=== PATIENT | female | born 1985 | race Caucasian/White ===

== ENCOUNTER 2020-11-05 09:42 | Day surgery (SDC) | payer BC ==
[~2020-11-05 09:42] MED LIST: Acetaminophen 1,000 MG in Premix Bag 1 BAG IV PRN; Glycopyrrolate 0.2 MG/ML SDV ONE; Ketorolac 30 MG/ML SDV ONE; Lactated Ringers 1,000 ML IV SCH; Lidocaine 2% 5 ML SDV ONE; Midazolam 1 MG/ML 2 ML SDV ONE; Ondansetron 4 MG/2 ML SDV ONE; Propofol 200 MG/20 ML SDV ONE; fentaNYL 100 MCG/2 ML SDV IVPUSH PRN; fentaNYL 100 MCG/2 ML SDV ONE
--- NOTE | 2020-11-05 10:04 | PCM.PREANE ---
Preanesthetic Assessment - Anesthesia/Transfusion/Family Hx Anesthesia History: Prior Anesthesia Without Reaction Family History of Anesthesia Reaction: No Transfusion History: No Prior Transfusion(s) - Review of Systems General: No Symptoms Pulmonary: No Symptoms Cardiovascular: No Symptoms Gastrointestinal: No Symptoms Neurological: No Symptoms Other: Reports: None - Physical Assessment NPO Status Date: 11/05/20 NPO Status Time: 00:01 Height: 5 ft 6 in Weight: 167 lb ASA Class: 2 Mental Status: Alert & Oriented x3 Airway Class: Mallampati = 2 Dentition: Reports: Normal Dentition ROM/Head Extension: Full Lungs: Clear to Auscultation, Normal Respiratory Effort Cardiovascular: Regular Rate, Regular Rhythm - Allergies Allergies/Adverse Reactions: Allergies Allergy/AdvReac Type Severity Reaction Status Date / Time gluten Allergy Diarrhea Verified 11/01/20 15:16 morphine Allergy Anaphylactic Verified 11/01/20 15:16 Shock - Anesthesia Plan Pre-Op Medication Ordered: None - Acknowledgements Anesthesia Type Planned: General Anesthesia Pt an Appropriate Candidate for the Planned Anesthesia: Yes Alternatives and Risks of Anesthesia Discussed w Pt/Guardian: Yes Pt/Guardian Understands and Agrees with Anesthesia Plan: Yes Additional Comments: npo after mn IBS no cv problems tob none etoh occ bmi 27 par no questions PreAnesthesia Questionnaire HEENT History: Reports: Other (See Below) Other HEENT History: wears glasses/contacts Cardiovascular History: Reports: None Respiratory History: Reports: None Gastrointestinal History: Reports: Irritable Bowel Syndrome Genitourinary History: Reports: None [employer]ANCE [employer]AFF ST[employer]ER History: Reports: None Musculoskeletal History: Reports: Fracture Other Musculoskeletal History: hx of fx jaw Neurological History: Reports: Concussion, Other (See Below) Other Neuro History: hx of motion sickness Psychiatric History: Reports: None Endocrine/Metabolic History: Reports: None Hematologic History: Reports: None Immunologic History: Reports: None Oncologic (Cancer) History: Reports: None Dermatologic History: Reports: None - Past Surgical History Head Surgeries/Procedures: Reports: None HEENT Surgical History: Reports: Oral Surgery Other HEENT Surgeries/Procedures: ORIF fx jaw, wisdom teeth removed, 2 dental implants Cardiovascular Surgical History: Reports: None Respiratory Surgical History: Reports: None GI Surgical History: Reports: None Female Surgical History: Reports: Other (See Below) Other Female Surgeries/Procedures: previous Hysteroscopy Endocrine Surgical History: Reports: None Neurological Surgical History: Reports: None Musculoskeletal Surgical History: Reports: ORIF Other Musculoskeletal Surgeries/Procedures:: ORIF fx jaw Oncologic Surgical History: Reports: None - SUBSTANCE USE Tobacco Use Status *Q: Never Tobacco User Recreational Drug Use History: No - HOME MEDS Home Medications: Home Meds Desogestrel/Ethinyl Estradiol [Apri] 1 tab PO DAILY 11/01/20 [History] Docosahexaenoic Acid [ Dha] 1 cap PO DAILY 11/01/20 [History] L.acidoph,Paracasei, B.lactis [Probiotic] 1 cap PO DAILY 11/01/20 [History] Pnv No.95/Ferrous Fum/Folic AC [ Vitamin Tablet] 1 tab PO DAILY 11/01/20 [History] Vitamins A and D [Vitamin A and D] 1 cap PO DAILY 11/01/20 [History] - CURRENT (IN HOUSE) MEDS Current Meds: Current Medications Fentanyl (Fentanyl 100 Mcg/2 Ml Sdv) 50 mcg IVPUSH Q5M PRN PRN Reason: Pain Lactated Ringer's (Ringers, Lactated) 1,000 mls @ 125 mls/hr IV ASDIRECTED JORDI Acetaminophen 1,000 mg/ Premix 100 mls @ 400 mls/hr IV Q6H PRN PRN Reason: Pain Discontinued Medications Fentanyl (Fentanyl 100 Mcg/2 Ml Sdv) Confirm Administered Dose 100 mcg .ROUTE .STK-MED ONE Stop: 11/05/20 07:10 Glycopyrrolate (Glycopyrrolate 0.2 Mg/Ml Sdv) Confirm Administered Dose 0.2 mg .ROUTE .STK-MED ONE Stop: 11/05/20 07:11 Ketorolac Tromethamine (Ketorolac 30 Mg/Ml Sdv) Confirm Administered Dose 30 mg .ROUTE .STK-MED ONE Stop: 11/05/20 07:11 Lidocaine (Lidocaine 2% 5 Ml Sdv) Confirm Administered Dose 5 ml .ROUTE .STK-MED ONE Stop: 11/05/20 07:11 Midazolam HCl (Midazolam 1 Mg/Ml 2 Ml Sdv) Confirm Administered Dose 2 mg .ROUTE .STK-MED ONE Stop: 11/05/20 07:10 Ondansetron HCl (Ondansetron 4 Mg/2 Ml Sdv) Confirm Administered Dose 4 mg .ROUTE .STK-MED ONE Stop: 11/05/20 07:11 Propofol (Propofol 200 Mg/20 Ml Sdv) Confirm Administered Dose 200 mg .ROUTE .[facility] ONE Stop: 11/05/20 07:10
--- NOTE | 2020-11-05 11:13 | PCM.OPNOTE ---
- General Post-Op/Procedure Note Date of Surgery/Procedure: 11/05/20 Operative Procedure(s): Hysteroscopy dilation and curettage with polypectomy Findings: Anteverted uterus sounding to 8cm. Two endometrial polyps located over the posterior endometrium. Pre Op Diagnosis: 1. Endometrial polyp. 2. Infertility Post-Op Diagnosis: 1. Endometrial polyp. 2. Infertility Anesthesia Technique: General LMA Primary Surgeon: Komal Bauman Anesthesia Provider: Mayo Aiken Pathology: Endometrial polyps, endometrial curettings Fluid Replacement, Intraop: 600 (crystalloid) Output, Urine Amount: 50 (straight cath prior to procedure) EBL in mLs: 10 Complications: None known Condition: Good Free Text/Narrative:: Intraoperative fluid deficit: 200cc Dictation #[id number]
--- NOTE | 2020-11-05 11:32 | PCM.POSTAN ---
POST ANESTHESIA ASSESSMENT - MENTAL STATUS Mental Status: Alert (no anesthetic problems), Oriented - VITAL SIGNS Vital Signs: Last Vital Signs Temp 98.6 F 11/05/20 10:59 Pulse 68 11/05/20 11:20 Resp 14 11/05/20 11:20 BP 125/74 11/05/20 11:20 Pulse Ox 98 11/05/20 11:20 - RESPIRATORY Respiratory Status: Respiratory Rate WNL, Airway Patent, O2 Saturation Stable - CARDIOVASCULAR CV Status: Pulse Rate WNL, Blood Pressure Stable - GASTROINTESTINAL GI Status: No Symptoms - POST OP HYDRATION Hydration Status: Adequate & Stable
--- NOTE | 2020-11-05 12:39 | PCM48HPAN ---
Post Anesthesia Note - EVALUATION WITHIN 48HRS OF ANESTHETIC Vital Signs in Normal Range: Yes Patient Participated in Evaluation: Yes Respiratory Function Stable: Yes Airway Patent: Yes Cardiovascular Function Stable: Yes Hydration Status Stable: Yes Pain Control Satisfactory: Yes Nausea and Vomiting Control Satisfactory: Yes Mental Status Recovered: Yes Vital Signs: Last Vital Signs Temp 98.6 F 11/05/20 10:59 Pulse 68 11/05/20 11:20 Resp 14 11/05/20 11:20 BP 125/74 11/05/20 11:20 Pulse Ox 98 11/05/20 11:20
--- NOTE | 2020-11-05 12:53 | OR ---
SURGEON: CHRISTIANO JOSEPH MD DATE OF PROCEDURE: 11/05/2020 PREOPERATIVE DIAGNOSES: 1. Endometrial polyp. 2. Infertility. POSTOPERATIVE DIAGNOSES: 1. Endometrial polyp. 2. Infertility. PROCEDURE: Hysteroscopy, dilation and curettage with polypectomy. ANESTHESIA: LMA. COMPLICATIONS: None known. ESTIMATED BLOOD LOSS: 10 mL. INTRAVENOUS FLUID: 600 mL. INTRAOPERATIVE FLUID DEFICIT: 200 mL. URINE OUTPUT: 50 mL, straight cath prior to the procedure. FINDINGS: Anteverted uterus sounded to 8 cm. Two endometrial polyps located over the posterior endometrium. PATHOLOGY: Endometrial polyp, endometrial curettings. INDICATIONS: A 34-year-old 1, para 0-0-1-0 who presented to [facility] on October 23, 2020, for a saline sonohysterogram in preparation for embryo transfer, working with TY Womack. A posterior polyp was noted on sonohysterogram, and the patient advised to proceed with hysteroscopic removal. Informed consent was then obtained. PROCEDURE IN DETAIL: The patient was taken to the operating room where LMA was introduced. She was then prepped and draped in the dorsal lithotomy position. Bladder was drained. An open-sided Graves speculum was then inserted into the vagina to visualize the cervix. The cervix was then grasped with Allis clamp at 12 o'clock. Uterus was then sounded to 8 cm. The cervix was then serially dilated to 9 Hegar, and the MyoSure hysteroscope was then inserted into the cervix and the uterus. Findings were noted as above. Right and left ostia were visualized without difficulty. The MyoSure device was then inserted through the hysteroscope, and the 2 posterior polyps were then removed without difficulty. Hysteroscope was then removed, and a gentle sharp curettage was then performed with a medium Mccray curette. Specimen was sent to Pathology. Bleeding was minimal. The Allis clamp was then removed. Hemostasis was noted. All instruments were then removed from the vagina. The patient tolerated the procedure well. Sponge, lap, and needle count were correct x2. The patient was taken to recovery in stable condition. SVETLANA / JUNI /[id number]
== END 2020-11-05 11:40 | disposition home or self-care (01) ==
LOC: MW.SDS 09:42
PROVIDERS: ATTEND Obstetrics & Gynecology
DX: N71.0 Acute inflammatory disease of uterus (principal); N71.1 Chronic inflammatory disease of uterus; N97.9 Female infertility, unspecified; N84.0 Polyp of corpus uteri; Z79.899 Other long term (current) drug therapy; Z88.6 Allergy status to analgesic agent; Z91.018 Allergy to other foods
CPT/HCPCS: 36415; 58558; 81025; 85027; 88305; J1885; J2250; J2405; J2704; J3490; J7120; 00952; J3010

== ENCOUNTER 2021-08-18 05:09 | Inpatient (IN) | payer BC ==
[2021-08-18] MEDS: Lactated Ringers 1,000 ML IV SCH ×3 (05:50→15:09)
[2021-08-18] MEDS ORDERED: Ondansetron 4 MG/2 ML SDV IVPUSH PRN (06:06)
[2021-08-18] MEDS ORDERED: Water For Irrigation,Sterile 1,000 ML Container IRR PRN (06:06)
[2021-08-18] MEDS ORDERED: Carboprost Tromethamine 250 MCG/1 ML Amp IM PRN (06:06)
[2021-08-18] MEDS ORDERED: Sodium Chloride 0.9% 20 ML SDV IV PRN (06:06)
[2021-08-18] MEDS ORDERED: Lidocaine 1% 50 ML MDV INJECT PRN (06:06)
[2021-08-18] MEDS ORDERED: Misoprostol 200 MCG Tab PO PRN (06:06)
[2021-08-18] MEDS ORDERED: Tranexamic Acid 1,000 MG in Sodium Chloride 0.9% 100 ML IV PRN (06:06)
[2021-08-18] MEDS ORDERED: Methylergonovine 0.2 MG/1 ML Amp IM PRN (06:06)
[2021-08-18] MEDS ORDERED: Sodium Chloride 0.9% 10 ML Syringe FLUSH PRN (06:06)
[2021-08-18] MEDS ORDERED: Sodium Chloride 0.9% 2.5 ML Syringe FLUSH PRN (06:06)
[2021-08-18] MEDS ORDERED: Terbutaline 1 MG/ML SDV SUBCUT PRN (06:10)
[2021-08-18] MEDS ORDERED: Oxytocin/0.9 % Sodium Chloride 30 UNIT/500 ML BAG IV SCH ×2 (06:15→06:30)
[2021-08-18] MEDS ORDERED: Ampicillin 2 GM in Sodium Chloride 0.9% 100 ML IV ONE (06:30)
[2021-08-18] MEDS: Ampicillin 1 GM in Sodium Chloride 0.9% 50 ML IV SCH ×3 (10:34→18:49)
[2021-08-18] MEDS ORDERED: Lidocaine 2% with EPINEPHrine 1:200,000 20 ML SDV ONE (15:09)
[2021-08-18] MEDS ORDERED: Ropivacaine HCl/PF 100 ML ONE ×2 (15:10→20:42)
[2021-08-18] MEDS ORDERED: ePHEDrine 50 MG/ML SDV IVPUSH ONE (16:31)
[2021-08-18] MEDS ORDERED: ePHEDrine 50 MG/ML SDV ONE (16:34)
[2021-08-18] MEDS ORDERED: ePHEDrine 50 MG/ML SDV IVPUSH PRN (16:53)
[2021-08-18] MEDS ORDERED: oxyCODONE 5 MG Tab PO PRN (22:57)
[2021-08-18] MEDS ORDERED: Bisacodyl 10 MG Supp RECTAL PRN (22:57)
[2021-08-18] MEDS: Ibuprofen 800 MG Tab PO PRN (23:36)
[2021-08-18] MEDS: Benzocaine/Menthol 20%-0.5% Spray 78 GM Cannister TOP PRN (23:38)
[2021-08-18] MEDS: Witch Hazel Medicated Pads 40/Jar TOP PRN (23:39)
[2021-08-18] MEDS: Lanolin 100% Cream 7 GM Tube TOP PRN (23:39)
[2021-08-19] MEDS: Ibuprofen 800 MG Tab PO PRN ×2 (08:21→17:31)
[2021-08-19] MEDS: Acetaminophen 500 MG Tab PO PRN (12:33)
[2021-08-20] MEDS: Witch Hazel Medicated Pads 40/Jar TOP PRN ×2 (02:14→21:10)
[2021-08-20] MEDS: Ibuprofen 800 MG Tab PO PRN ×2 (02:15→16:29)
[2021-08-20] MEDS: Benzocaine/Menthol 20%-0.5% Spray 78 GM Cannister TOP PRN ×2 (02:15→21:10)
[2021-08-20] MEDS: Docusate Sodium 100 MG Cap PO PRN ×2 (09:28→21:09)
[2021-08-20] MEDS: Acetaminophen 500 MG Tab PO PRN ×2 (12:31→23:56)
[2021-08-20] MEDS: Lanolin 100% Cream 7 GM Tube TOP PRN (21:10)
== END 2021-08-20 23:59 | disposition home or self-care (01) | DRG 560 ==
LOC: MW.OBCHECK 05:09 → MW.OB 05:10 → MW.OBCHECK 06:06 → MW.OB 06:06 → OBSVTOIN 22:27 → MW.OB 08-19 00:54
PROVIDERS: ADMIT Obstetrics & Gynecology; ATTEND Obstetrics & Gynecology
PROC: 10E0XZZ Delivery of Products of Conception, External Approach (ICD-10-PCS; principal; 2021-08-18)
PROC: 10907ZC Drainage of Amniotic Fluid, Therapeutic from Products of Conception, Via Natural or Artificial Opening (ICD-10-PCS; 2021-08-18)
PROC: 0KQM0ZZ Repair Perineum Muscle, Open Approach (ICD-10-PCS; 2021-08-18)
DX: O99.824 Streptococcus B carrier state complicating childbirth (principal); Z3A.39 39 weeks gestation of pregnancy; Z37.0 Single live birth; O77.0 Labor and delivery complicated by meconium in amniotic fluid; O69.81X0 Labor and delivery complicated by cord around neck, without compression, not applicable or unspecified; O70.1 Second degree perineal laceration during delivery; Z20.822 Contact with and (suspected) exposure to COVID-19
CPT/HCPCS: 01967; 36415; 51702; 59025; 59409; 81003; 85014; 85018; 85027; 86592; 86850; 86900; 86901; A9270-GY; J0290; J2405; J2590; J2795; J7120; U0002

== ENCOUNTER 2023-05-10 05:17 | Inpatient (IN) | payer BC ==
[2023-05-10] MEDS ORDERED: Citric Acid/Sodium Citrate Solution 30 ML Cup PO ONE (05:21)
[2023-05-10] MEDS ORDERED: ceFAZolin 2 GM in Sodium Chloride 0.9% 50 ML IV ONE (05:21)
[2023-05-10] MEDS ORDERED: Sodium Chloride 0.9% 20 ML SDV IV PRN (05:21)
[2023-05-10] MEDS ORDERED: Sodium Chloride 0.9% 2.5 ML Syringe FLUSH PRN (05:21)
[2023-05-10] MEDS ORDERED: Sodium Chloride 0.9% 10 ML Syringe FLUSH PRN (05:21)
[2023-05-10] MEDS ORDERED: Oxytocin/0.9 % Sodium Chloride 30 UNIT/500 ML BAG IV SCH ×2 (05:30→09:00)
[2023-05-10] MEDS ORDERED: Lactated Ringers 1,000 ML IV SCH ×2 (05:30→09:00)
[2023-05-10 07:35] LABS: HEMATOCRIT 37.5 % (37.0-47.0); HEMOGLOBIN 13.4 g/dL (12.0-16.0); MEAN CORPUSCULAR HEMOGLOBIN 33.7 pg (28.0-32.0); MEAN CORPUSCULAR HGB CONC 35.7 g/dL (32.0-36.0); MEAN CORPUSCULAR VOLUME 94.2 fL (83.0-99.0); MEAN PLATELET VOLUME 9.9 fL (9.4-12.3); PLATELET COUNT,PLT 218 K/uL (150-400); RED BLOOD CELL COUNT 3.98 M/uL (4.10-5.30); WHITE BLOOD CELL COUNT,WBC 11.14 K/uL (3.9-11.3)
[2023-05-10] MEDS ORDERED: Oxytocin 10 Units/1 ML SDV ONE (07:40)
[2023-05-10] MEDS ORDERED: fentaNYL 100 MCG/2 ML SDV ONE (07:40)
[2023-05-10] MEDS ORDERED: Ropivacaine 0.5% 5 MG/ML 30 ML SDV ONE ×2 (07:40→07:48)
[2023-05-10] MEDS ORDERED: Dexamethasone 4 MG/ML 5 ML MDV ONE (07:40)
[2023-05-10] MEDS ORDERED: ceFAZolin 1 GM Vial ONE (07:40)
[2023-05-10] MEDS ORDERED: Ketorolac 30 MG/ML SDV ONE (07:40)
[2023-05-10] MEDS ORDERED: Ondansetron 4 MG/2 ML SDV ONE (07:40)
[2023-05-10] MEDS ORDERED: Phenylephrine 1% 10 MG/ML SDV ONE (07:42)
[2023-05-10] MEDS ORDERED: Bupivacaine 0.25% 30 ML SDV ONE (07:48)
[2023-05-10] MEDS ORDERED: EPINEPHrine 1 MG/1 ML Amp ONE (07:48)
[2023-05-10] MEDS ORDERED: ceFAZolin 2 GM Vial ONE (08:05)
[2023-05-10] MEDS ORDERED: Oxytocin 10 Units/1 ML SDV IM PRN (08:58)
[2023-05-10] MEDS ORDERED: Ibuprofen 800 MG Tab PO PRN (08:58)
[2023-05-10] MEDS ORDERED: Methylergonovine 0.2 MG/1 ML Amp IM PRN (08:58)
[2023-05-10] MEDS ORDERED: Misoprostol 200 MCG Tab RECTAL PRN (08:58)
[2023-05-10] MEDS ORDERED: Bisacodyl 10 MG Supp RECTAL PRN (08:58)
[2023-05-10] MEDS ORDERED: Ondansetron 4 MG/2 ML SDV IVPUSH PRN ×2 (08:58→09:06)
[2023-05-10] MEDS ORDERED: Lanolin 100% Cream 7 GM Tube TOP PRN (08:58)
[2023-05-10] MEDS ORDERED: diphenhydrAMINE 50 MG/ML SDV IVPUSH PRN (08:58)
[2023-05-10] MEDS ORDERED: Ketorolac 30 MG/ML SDV IVPUSH SCH (09:00)
[2023-05-10] MEDS ORDERED: Albuterol 0.083% 2.5 MG/3 ML Neb Soln NEB PRN (09:06)
[2023-05-10] MEDS ORDERED: Metoclopramide 10 MG/2 ML SDV IVPUSH PRN (09:06)
[2023-05-10] MEDS ORDERED: ePHEDrine 50 MG/ML SDV IVPUSH PRN (09:06)
[2023-05-10] MEDS ORDERED: fentaNYL 50 MCG/ML SDV IVPUSH PRN (09:06)
[2023-05-10] MEDS ORDERED: droPERidol 5 MG/2 ML SDV IVPUSH PRN (09:06)
[2023-05-10] MEDS ORDERED: HYDROmorphone 1 MG/ML Syringe IVPUSH PRN (09:06)
[2023-05-10] MEDS ORDERED: Naloxone 0.4 MG/ML SDV IVPUSH PRN (09:06)
[2023-05-10 09:24] LABS: PH,UMBILICAL ARTERIAL 7.26 (7.18-7.38); PH,UMBILICAL VENOUS 7.311 (7.25-7.45)
[2023-05-10] MEDS ORDERED: Acetaminophen 1,000 MG in Premix Bag 1 BAG IV PRN (09:38)
[2023-05-10] MEDS: Ketorolac 30 MG/ML SDV IVPUSH SCH (20:13)
[2023-05-10] MEDS: Docusate Sodium 100 MG Cap PO SCH (20:16)
[2023-05-11] MEDS: Ketorolac 30 MG/ML SDV IVPUSH SCH ×3 (02:07→12:31)
[2023-05-11 06:27] LABS: HEMATOCRIT 29.8 % (37.0-47.0); HEMOGLOBIN 10.6 g/dL (12.0-16.0)
[2023-05-11] MEDS: Docusate Sodium 100 MG Cap PO SCH ×3 (07:31→20:38)
[2023-05-11] MEDS ORDERED: oxyCODONE 5 MG Tab PO PRN (08:27)
[2023-05-11] MEDS: Acetaminophen 325 MG Tab PO SCH ×3 (09:47→20:38)
[2023-05-11] MEDS: Ibuprofen 800 MG Tab PO SCH ×3 (09:48→20:39)
[2023-05-12] MEDS: Acetaminophen 325 MG Tab PO SCH (02:29)
[2023-05-12] MEDS: Ibuprofen 800 MG Tab PO SCH (02:30)
[2023-05-12] MEDS ORDERED: Ibuprofen 800 MG Tab PO ONE (08:19)
[2023-05-12] MEDS ORDERED: Acetaminophen 500 MG Tab PO ONE (08:19)
[2023-05-12] MEDS: Docusate Sodium 100 MG Cap PO SCH (08:37)
[2023-05-13] MEDS ORDERED: Prenatal Multivitamin with Calcium/Folic Acid/Iron Tab PO SCH (09:00)
== END 2023-05-12 10:30 | disposition home or self-care (01) | DRG 540 ==
LOC: MW.OB 05:17
PROVIDERS: ADMIT Obstetrics & Gynecology; ATTEND Obstetrics & Gynecology
PROC: 10D00Z1 Extraction of Products of Conception, Low, Open Approach (ICD-10-PCS; principal; 2023-05-10 08:00)
DX: O71.6 Obstetric damage to pelvic joints and ligaments (principal); O24.420 Gestational diabetes mellitus in childbirth, diet controlled; Z37.0 Single live birth; Z3A.38 38 weeks gestation of pregnancy; Z98.890 Other specified postprocedural states; Z87.81 Personal history of (healed) traumatic fracture
CPT/HCPCS: 36415; 59025; 82803; 85014; 85018; 85027; 86592; 86850; 86900; 86901; A9270-GY; J0131; J0171; J0690; J1100; J1885; J2371; J2405; J2590; J2795; J3010; J3490; J7120